=== PATIENT | female | born 1960 | race African-American/Black ===

== ENCOUNTER 2016-10-29 18:24 | Emergency (ER) | payer MEDICAID ==
[~2016-10-29] VITALS: Ht 170.2 cm; Wt 59.0 kg
[2016-10-29 19:16] LABS: Basophils # (auto) 0 uL; Basophils % (auto) 0.3 % (0.0-2.0); Eosinophils # (auto) 0 uL; Eosinophils % (auto) 0.4 % (0.0-7.0); Hematocrit 39.7 % (36.0-46.0); Hemoglobin 12.8 g/dL (12.2-16.2); Lymphocytes % (auto) 8.8 % (10.0-50.0); Mean Corpuscular Hemoglobin 27.8 pg (28.0-32.0); Mean Corpuscular Hgb Conc. 32.4 g/dL (32.0-36.0); Mean Corpuscular Volume 85.9 fL (80.0-100.0); Mean Platelet Volume 9.8 fL (7.4-10.4); Monocytes # (auto) 0.5 uL; Monocytes % (auto) 4.7 % (0.0-12.0); Neutrophils # (auto) 9.9 uL; Neutrophils % (auto) 85.8 % (37.0-80.0); Platelet Count (auto) 309 10^3/uL (140-450); Red Cell Distribution Width 14.8 % (11.6-16.0); SUSPECT VIEW TRANSMISSION; White Blood Cell 11.6 10^3/uL (4.4-10.8)
[2016-10-29 19:34] LABS: BUN/Creatinine Ratio 23.7; Calcium 8.9 mg/dL (8.5-10.1); Magnesium 2.4 mg/dL (1.6-2.6); Potassium 3.3 mmol/L (3.5-5.1)
[2016-10-29 19:38] LABS: Bilirubin, Total 0.8 mg/dL (0.2-1.0); Total Protein 7.6 g/dL (6.4-8.2)
[2016-10-29] MEDS ORDERED: ONDANSETRON HCL 4 MG/2 ML VIAL IV ONE (19:45)
[2016-10-29] MEDS ORDERED: HYDROmorphone HCL 2 MG/ML VL IV ONE (19:45)
[2016-10-29] MEDS ORDERED: LOPERAMIDE HCL 2 MG CAP PO ONE (19:45)
[2016-10-29] MEDS ORDERED: SODIUM CHLORIDE 0.9% 1,000 ML IV ONE (19:45)
[2016-10-29] MEDS ORDERED: POTASSIUM CHL 10% (20 MEQ/15ML) ORAL SOLN PO ONE (20:00)
[2016-10-29 21:47] VITALS: BP 104/70
[2016-10-29] MEDS ORDERED: cefTRIAXone 1GM/50ML D5W 50 ML IV ONE (22:30)
== END 2016-10-29 22:32 | disposition home or self-care (01) ==
LOC: ER 18:25
DX: J20.9 Acute bronchitis, unspecified (principal); E87.6 Hypokalemia; R53.1 Weakness; R42 Dizziness and giddiness; Z95.1 Presence of aortocoronary bypass graft; I10 Essential (primary) hypertension
CPT/HCPCS: 36415; 71010; 80053; 83735; 84484; 85025; 93005; 94761; 96361; 96365; 96375; 99285; J0696; J1170; J2405; J7030

== ENCOUNTER → 2017-03-18 | Outpatient (CLI) | payer MEDICAID ==
[~2017-03-18] VITALS: Ht 167.6 cm; Wt 53.1 kg
[~2017-03-18] MED LIST: ADENOSINE 45 MG in GIVE UN-DILUTED 0 ML IV ONE; ADENOSINE 90 MG/30 ML INJ IV ONE
== END | disposition home or self-care (01) ==
LOC: Rad HDHVI 10:19
PROVIDERS: ATTEND Internal Medicine Cardiovascular Disease
DX: I10 Essential (primary) hypertension (principal); R07.9 Chest pain, unspecified; E78.5 Hyperlipidemia, unspecified; Z82.49 Family history of ischemic heart disease and other diseases of the circulatory system; Z95.1 Presence of aortocoronary bypass graft
CPT/HCPCS: 78452; 93005; 96374; 96375; A9500; J0153

== ENCOUNTER → 2017-04-04 | Outpatient (CLI) | payer MEDICAID | END | disposition home or self-care (01) | LOC: Rad HDHVI 09:56 | PROVIDERS: ATTEND Internal Medicine Cardiovascular Disease | DX: I08.1 Rheumatic disorders of both mitral and tricuspid valves (principal); R42 Dizziness and giddiness | CPT/HCPCS: 93306 ==

== ENCOUNTER → 2017-06-13 | Outpatient (CLI) | payer MEDICAID ==
[2017-06-13 09:00] VITALS: BP 132/80
[2017-06-13 10:05] VITALS: BP 126/79
[2017-06-13 13:22] LABS: Basophils # (auto) 0 uL; Basophils % (auto) 0.4 % (0.0-2.0); Eosinophils # (auto) 0.2 uL; Eosinophils % (auto) 2.3 % (0.0-7.0); Hematocrit 34.5 % (36.0-46.0); Hemoglobin 10.9 g/dL (12.2-16.2); Lymphocytes # (auto) 2.7 uL; Lymphocytes % (auto) 33.2 % (10.0-50.0); Mean Corpuscular Hemoglobin 29.1 pg (28.0-32.0); Mean Corpuscular Hgb Conc. 31.6 g/dL (32.0-36.0); Mean Corpuscular Volume 92.1 fL (80.0-100.0); Mean Platelet Volume 8.2 fL (6.9-10.8); Monocytes # (auto) 0.6 uL; Monocytes % (auto) 7.4 % (0.0-12.0); Neutrophils # (auto) 4.7 uL; Neutrophils % (auto) 56.7 % (37.0-80.0); Nucleated Red Blood Cells % 0.1 %; Platelet Count (auto) 282 10^3/uL (140-450); Red Cell Distribution Width 14.4 % (11.8-14.3); White Blood Cell 8.3 10^3/uL (4.4-10.8)
[2017-06-13 13:38] LABS: INR 0.98 (0.9-1.15); Partial Thromboplastin Time 26.3 sec (22.64-33.71); Prothrombin Time 10.7 sec (9.37-12.3)
[2017-06-13 19:05] LABS: Potassium 3.9 mmol/L (3.5-5.1)
[2017-06-13 19:06] LABS: Calcium 8.7 mg/dL (8.5-10.1)
[2017-06-13 19:17] LABS: BUN/Creatinine Ratio 10.2
== END | disposition home or self-care (01) ==
LOC: Rad HDHVI 09:16
PROVIDERS: ATTEND Internal Medicine Cardiovascular Disease
DX: Z01.818 Encounter for other preprocedural examination (principal); I10 Essential (primary) hypertension; D64.9 Anemia, unspecified; R79.1 Abnormal coagulation profile; I70.0 Atherosclerosis of aorta
CPT/HCPCS: 36415; 71020; 80048; 85025; 85610; 85730; 93005; G0463

== ENCOUNTER → 2017-06-16 | Day surgery (SDC) | payer MEDICAID ==
[~2017-06-16] VITALS: Ht 167.6 cm; Wt 53.1 kg
[~2017-06-16] MED LIST changes: -ADENOSINE 45 MG in GIVE UN-DILUTED 0 ML IV ONE; -ADENOSINE 90 MG/30 ML INJ IV ONE; +ANGIOMAX 250 MG VIAL IV ONE; +ASPI81TA27 PO; +ATOR20TA50 PO; +CHOL200031 PO; +CLOP75TA41 PO; +DOCU100T15 PO; +ENAL2.5T PO; +FERR325T PO; +IOHEXOL 350 MG/ML 100ML IJ ONE; +LEFL20TA PO; +LIDOCAINE 2%HCL (LOCAL ANESTH.) INJ 20ML MDV ONE; +METO10TA3 PO; +MIDAZOLAM HCL 1MG/1ML-2 ML VIAL ONE; +ONDA4TAB5 PO; +ONDANSETRON HCL 4 MG/2 ML VIAL IV ONE; +PANT40TA2 PO; +POTA10TA51 PO; +PRE5T PO; +SODIUM CHL 0.9% 0 ML ONE; +SULI150T38 PO; +[UNRECOGNIZED DRUG - CODE] PO; +fentaNYL CITRATE 100 MCG/2 ML VL ONE
== END | disposition home or self-care (01) ==
LOC: CATH 08:34
PROVIDERS: ATTEND Internal Medicine Cardiovascular Disease
DX: I25.10 Atherosclerotic heart disease of native coronary artery without angina pectoris (principal); Z95.1 Presence of aortocoronary bypass graft; I10 Essential (primary) hypertension; E78.5 Hyperlipidemia, unspecified; I25.2 Old myocardial infarction; I50.9 Heart failure, unspecified; Z87.891 Personal history of nicotine dependence
CPT/HCPCS: C1887; C1894; J1644; J3010; J7030; Q9967; 93458; 99152; 99153; J2250

== ENCOUNTER 2017-08-01 09:31 | Emergency (ER) | payer MEDICAID ==
[~2017-08-01] VITALS: Ht 167.6 cm; Wt 58.1 kg
[~2017-08-01 09:31] MED LIST changes: -ANGIOMAX 250 MG VIAL IV ONE; -IOHEXOL 350 MG/ML 100ML IJ ONE; -LIDOCAINE 2%HCL (LOCAL ANESTH.) INJ 20ML MDV ONE; -MIDAZOLAM HCL 1MG/1ML-2 ML VIAL ONE; -ONDANSETRON HCL 4 MG/2 ML VIAL IV ONE; -SODIUM CHL 0.9% 0 ML ONE; -fentaNYL CITRATE 100 MCG/2 ML VL ONE
[2017-08-01 09:37] VITALS: BP 118/79
== END 2017-08-01 11:21 | disposition home or self-care (01) ==
LOC: ER 09:31
DX: L03.032 Cellulitis of left toe (principal); I11.0 Hypertensive heart disease with heart failure; I50.9 Heart failure, unspecified; E78.5 Hyperlipidemia, unspecified; M19.90 Unspecified osteoarthritis, unspecified site; Z79.82 Long term (current) use of aspirin; Z79.899 Other long term (current) drug therapy
CPT/HCPCS: 73660

== ENCOUNTER 2019-10-03 21:28 | Emergency (ER) | payer MEDICAID ==
[~2019-10-03] VITALS: Ht 170.2 cm; Wt 59.9 kg
[~2019-10-03 21:28] MED LIST changes: +ASPI-404 PO; -ASPI81TA27 PO; +FERR-20 PO; -FERR325T PO; +ONDA-144 PO; -ONDA4TAB5 PO
[2019-10-03 22:33] VITALS: BP 115/80
== END 2019-10-04 00:59 | disposition home or self-care (01) ==
LOC: ER 21:32
DX: B86 Scabies (principal); B07.9 Viral wart, unspecified; L02.31 Cutaneous abscess of buttock; M19.90 Unspecified osteoarthritis, unspecified site; I11.0 Hypertensive heart disease with heart failure; I50.9 Heart failure, unspecified; E78.5 Hyperlipidemia, unspecified; Z79.899 Other long term (current) drug therapy

== ENCOUNTER 2021-09-12 10:32 | Emergency (ER) | payer MEDICAID ==
[~2021-09-12] VITALS: Ht 167.6 cm; Wt 60.8 kg
[~2021-09-12 10:32] MED LIST changes: -ASPI-404 PO; +ASPI-543 PO; -CLOP75TA41 PO; +CLOP75TA70 PO; -ENAL2.5T PO; +ENAL2.5T7 PO
[2021-09-12 10:39] VITALS: BP 87/54
[2021-09-12 13:20] LABS: Basophils # (auto) 0 10 ^3/uL (0-0.2); Basophils % (auto) 0.9 % (0.0-2.0); Eosinophils # (auto) 0.1 10 ^3/uL (0-0.8); Eosinophils % (auto) 1.8 % (0.0-7.0); Hematocrit 34.9 % (36.0-46.0); Lymphocytes # (auto) 1.6 10 ^3/uL (0.4-5.4); Lymphocytes % (auto) 30.9 % (10.0-50.0); Mean Corpuscular Hgb Conc. 31.4 g/dL (32.0-36.0); Mean Corpuscular Volume 85.9 fL (80.0-100.0); Monocytes # (auto) 0.3 10 ^3/uL (0-1.3); Monocytes % (auto) 5.9 % (0.0-12.0); Neutrophils # (auto) 3.2 10 ^3/uL (1.6-8.6); Neutrophils % (auto) 60.5 % (37.0-80.0); Nucleated Red Blood Cells % 0.2 %; Red Blood Cells 4.06 10^6/uL (4.0-5.20); Red Cell Distribution Width 17.1 % (11.8-14.3); White Blood Cell 5.3 10^3/uL (4.4-10.8)
[2021-09-12 13:50] LABS: Albumin 3.4 g/dL (3.4-5.0); Calcium 8.9 mg/dL (8.5-10.1); Potassium 4.6 mmol/L (3.5-5.1)
[2021-09-12 13:53] LABS: BUN/Creatinine Ratio 8.6; Bilirubin, Total 0.8 mg/dL (0.2-1.0); Total Protein 6.4 g/dL (6.4-8.2)
== END 2021-09-12 17:49 | disposition left against medical advice (07) ==
LOC: ER 10:32
DX: D64.9 Anemia, unspecified (principal); M19.072 Primary osteoarthritis, left ankle and foot; M19.071 Primary osteoarthritis, right ankle and foot; I11.0 Hypertensive heart disease with heart failure; I50.9 Heart failure, unspecified; I25.2 Old myocardial infarction; E78.5 Hyperlipidemia, unspecified; Z95.1 Presence of aortocoronary bypass graft
CPT/HCPCS: 36415; 73620; 80053; 85025; 93005

== ENCOUNTER 2022-12-01 15:17 | Inpatient (IN) | payer MEDICAID ==
[~2022-12-01] VITALS: Ht 167.6 cm; Wt 56.0 kg
[2022-12-01] MEDS ORDERED: CEFTRIAXONE SODIUM 2 GM in D5W 5% 100 ML IV ONE (16:45)
[2022-12-01] MEDS ORDERED: VANCOMYCIN 1GM/250ML 250 ML IV ONE (16:45)
[2022-12-01 18:34] LABS: Basophils # (auto) 0.1 10 ^3/uL (0-0.2); Basophils % (auto) 0.7 % (0.0-2.0); Eosinophils # (auto) 0 10 ^3/uL (0-0.8); Eosinophils % (auto) 0.4 % (0.0-7.0); Hematocrit 36.3 % (36.0-46.0); Hemoglobin 11.9 g/dL (12.2-16.2); Lymphocytes # (auto) 1.1 10 ^3/uL (0.4-5.4); Mean Corpuscular Hemoglobin 26.5 pg (28.0-32.0); Mean Corpuscular Hgb Conc. 32.9 g/dL (32.0-36.0); Mean Corpuscular Volume 80.5 fL (80.0-100.0); Monocytes # (auto) 0.3 10 ^3/uL (0-1.3); Monocytes % (auto) 3.5 % (0.0-12.0); Neutrophils # (auto) 7.2 10 ^3/uL (1.6-8.6); Neutrophils % (auto) 82.4 % (37.0-80.0); Nucleated Red Blood Cells % 0.1 %; Red Cell Distribution Width 16.8 % (11.8-14.3); White Blood Cell 8.7 10^3/uL (4.4-10.8)
[2022-12-01 18:52] LABS: Albumin 3.4 g/dL (3.4-5.0); Calcium 9.5 mg/dL (8.5-10.1); Potassium 4.7 mmol/L (3.5-5.1)
[2022-12-01 18:56] LABS: BUN/Creatinine Ratio 22.2 (10.0-20.0); Bilirubin, Total 0.4 mg/dL (0.2-1.0); Total Protein 6.5 g/dL (6.4-8.2)
[2022-12-01 20:33] LABS: Urine Bacteria NONE SEEN /hpf (None Seen); Urine Blood Negative /uL (Negative); Urine Mucus FEW (None Seen); Urine Specific Gravity 1.032 (1.001-1.035); Urine WBC 1 /hpf (0 - 5)
[2022-12-01] MEDS ORDERED: TEMAZEPAM 15 MG CAP PO PRN (22:15)
[2022-12-01] MEDS ORDERED: CLINDAMYCIN 600MG IV 50 ML IV SCH (22:34)
[2022-12-02] MEDS: GABAPENTIN 400 MG CAP PO SCH ×3 (06:59→22:33)
[2022-12-02] MEDS ORDERED: CAR3125T PO (07:05)
[2022-12-02] MEDS ORDERED: HYDR1TAB97 PO (07:05)
[2022-12-02] MEDS ORDERED: DICL35CA2 PO (07:05)
[2022-12-02] MEDS ORDERED: GABA-339 PO (07:05)
[2022-12-02] MEDS: CLINDAMYCIN 300MG IV 50 ML IV SCH ×4 (07:14→17:57)
[2022-12-02] MEDS: CLOPIDOGREL BISULFATE 75 MG TAB PO SCH (08:49)
[2022-12-02] MEDS: PANTOPRAZOLE 40 MG TAB PO SCH (08:49)
[2022-12-02] MEDS: CARVEDILOL 3.125 MG TAB PO SCH ×2 (08:50→22:34)
[2022-12-02] MEDS: ENOXAPARIN SOD 40 MG/0.4 ML SYRINGE SC SCH (08:51)
[2022-12-02 09:00] VITALS: BP 165/96
[2022-12-02] MEDS: ONDANSETRON HCL 4 MG/2 ML VIAL IV PRN ×2 (09:00→14:05)
[2022-12-02 10:21] LABS: Potassium 3.4 mmol/L (3.5-5.1)
[2022-12-02 10:42] LABS: Basophils # (auto) 0.1 10 ^3/uL (0-0.2); Eosinophils # (auto) 0.2 10 ^3/uL (0-0.8); Mean Corpuscular Hemoglobin 26.2 pg (28.0-32.0); Mean Corpuscular Hgb Conc. 31.6 g/dL (32.0-36.0); Monocytes # (auto) 0.8 10 ^3/uL (0-1.3)
[2022-12-02 10:43] LABS: BUN/Creatinine Ratio 19.4 (10.0-20.0); Bilirubin, Total 0.3 mg/dL (0.2-1.0); Calcium 8.8 mg/dL (8.5-10.1)
[2022-12-02 10:44] LABS: Basophils % (auto) 0.7 % (0.0-2.0); Eosinophils % (auto) 2.1 % (0.0-7.0); Hematocrit 36.1 % (36.0-46.0); Hemoglobin 11.4 g/dL (12.2-16.2); Lymphocytes # (auto) 2.3 10 ^3/uL (0.4-5.4); Lymphocytes % (auto) 25.8 % (10.0-50.0); Mean Corpuscular Volume 82.7 fL (80.0-100.0); Monocytes % (auto) 8.6 % (0.0-12.0); Neutrophils # (auto) 5.5 10 ^3/uL (1.6-8.6); Neutrophils % (auto) 62.8 % (37.0-80.0); Nucleated Red Blood Cells % 0.2 %; Red Blood Cells 4.37 10^6/uL (4.0-5.20); Red Cell Distribution Width 16.9 % (11.8-14.3); White Blood Cell 8.8 10^3/uL (4.4-10.8)
[2022-12-02] MEDS: HYDROcodone-ACET 5/325MG TAB PO PRN ×2 (11:52→22:18)
[2022-12-02 13:00] VITALS: BP 143/90
[2022-12-02 16:47] VITALS: BP 153/75
[2022-12-02] MEDS: cefTRIAXone 1GM/50ML D5W 50 ML IV SCH (21:43)
[2022-12-02 22:00] VITALS: BP 135/85
[2022-12-02] MEDS ORDERED: ATORVASTATIN 20 MG TAB PO SCH (22:00)
[2022-12-02] MEDS: ATORVASTATIN 20 MG TAB PO SCH (22:33)
[2022-12-03] MEDS: CLINDAMYCIN 300MG IV 50 ML IV SCH ×7 (00:09→22:55)
[2022-12-03] MEDS: ONDANSETRON HCL 4 MG/2 ML VIAL IV PRN ×2 (00:15→09:16)
[2022-12-03] MEDS: HYDROcodone-ACET 5/325MG TAB PO PRN (03:47)
[2022-12-03 05:00] VITALS: BP 135/91
[2022-12-03] MEDS: GABAPENTIN 400 MG CAP PO SCH (06:19)
[2022-12-03 08:30] VITALS: BP 127/80
[2022-12-03] MEDS: PANTOPRAZOLE 40 MG TAB PO SCH (09:04)
[2022-12-03] MEDS: ENOXAPARIN SOD 40 MG/0.4 ML SYRINGE SC SCH (09:05)
[2022-12-03] MEDS: CARVEDILOL 3.125 MG TAB PO SCH ×2 (09:05→22:31)
[2022-12-03] MEDS: CLOPIDOGREL BISULFATE 75 MG TAB PO SCH (09:05)
[2022-12-03] MEDS: DAKINS QUARTER STR 0.125% (NaHypochlorite) 473 ML TOPICAL SOL TOP SCH (09:09)
[2022-12-03 12:00] VITALS: BP 125/75
[2022-12-03] MEDS: GABAPENTIN 300 MG CAP PO SCH ×2 (13:54→21:37)
[2022-12-03] MEDS: HYDROcodone-ACET 10/325MG TAB PO PRN ×2 (13:54→21:38)
[2022-12-03 16:30] VITALS: BP 141/86
[2022-12-03] MEDS: ATORVASTATIN 20 MG TAB PO SCH (21:37)
[2022-12-03] MEDS: cefTRIAXone 1GM/50ML D5W 50 ML IV SCH (21:37)
[2022-12-03 22:00] VITALS: BP 168/91
[2022-12-04] MEDS: CLINDAMYCIN 300MG IV 50 ML IV SCH ×7 (00:54→23:31)
[2022-12-04] MEDS: HYDROcodone-ACET 10/325MG TAB PO PRN ×4 (02:27→21:07)
[2022-12-04] MEDS: ACETAMINOPHEN 325 MG TAB PO PRN ×2 (03:28→16:07)
[2022-12-04 05:00] VITALS: BP 125/68
[2022-12-04] MEDS: GABAPENTIN 300 MG CAP PO SCH ×3 (06:19→22:50)
[2022-12-04 07:55] VITALS: BP 129/79
[2022-12-04] MEDS: CLOPIDOGREL BISULFATE 75 MG TAB PO SCH (08:36)
[2022-12-04] MEDS: PANTOPRAZOLE 40 MG TAB PO SCH (08:36)
[2022-12-04] MEDS: ENOXAPARIN SOD 40 MG/0.4 ML SYRINGE SC SCH (08:37)
[2022-12-04] MEDS: DAKINS QUARTER STR 0.125% (NaHypochlorite) 473 ML TOPICAL SOL TOP SCH (08:42)
[2022-12-04] MEDS: CARVEDILOL 3.125 MG TAB PO SCH ×2 (08:42→23:09)
[2022-12-04 11:55] VITALS: BP 154/89
[2022-12-04 16:50] VITALS: BP 145/88
[2022-12-04] MEDS: cefTRIAXone 1GM/50ML D5W 50 ML IV SCH (21:06)
[2022-12-04 22:00] VITALS: BP 142/100
[2022-12-04] MEDS: ATORVASTATIN 20 MG TAB PO SCH (22:50)
[2022-12-05] MEDS: HYDROcodone-ACET 10/325MG TAB PO PRN ×3 (04:33→23:29)
[2022-12-05 04:56] VITALS: BP 147/80
[2022-12-05] MEDS: GABAPENTIN 300 MG CAP PO SCH ×3 (07:05→22:21)
[2022-12-05] MEDS: CLINDAMYCIN 300MG IV 50 ML IV SCH ×5 (07:05→23:29)
[2022-12-05] MEDS: ACETAMINOPHEN 325 MG TAB PO PRN (08:00)
[2022-12-05 08:50] VITALS: BP 138/80
[2022-12-05] MEDS: CLOPIDOGREL BISULFATE 75 MG TAB PO SCH (10:27)
[2022-12-05] MEDS: CARVEDILOL 3.125 MG TAB PO SCH ×2 (10:27→22:22)
[2022-12-05] MEDS: ENOXAPARIN SOD 40 MG/0.4 ML SYRINGE SC SCH (10:27)
[2022-12-05] MEDS: PANTOPRAZOLE 40 MG TAB PO SCH (10:28)
[2022-12-05] MEDS: DAKINS QUARTER STR 0.125% (NaHypochlorite) 473 ML TOPICAL SOL TOP SCH (10:29)
[2022-12-05 12:45] VITALS: BP 104/79
[2022-12-05 16:45] VITALS: BP 111/80
[2022-12-05] MEDS: SODIUM CHLORIDE 0.9% 1,000 ML IV SCH ×2 (16:47→22:22)
[2022-12-05 17:15] LABS: Basophils # (auto) 0 10 ^3/uL (0-0.2); Eosinophils # (auto) 0.1 10 ^3/uL (0-0.8); Lymphocytes # (auto) 1.2 10 ^3/uL (0.4-5.4); Monocytes # (auto) 0.3 10 ^3/uL (0-1.3); Neutrophils # (auto) 3.8 10 ^3/uL (1.6-8.6); Neutrophils % (auto) 69.8 % (37.0-80.0)
[2022-12-05 17:17] LABS: Basophils % (auto) 0.7 % (0.0-2.0); Eosinophils % (auto) 2.3 % (0.0-7.0); Hematocrit 36.6 % (36.0-46.0); Hemoglobin 11.9 g/dL (12.2-16.2); Mean Corpuscular Hemoglobin 26.8 pg (28.0-32.0); Mean Corpuscular Hgb Conc. 32.5 g/dL (32.0-36.0); Mean Corpuscular Volume 82.4 fL (80.0-100.0); Monocytes % (auto) 5.2 % (0.0-12.0); Nucleated Red Blood Cells % 0.2 %; Red Blood Cells 4.44 10^6/uL (4.0-5.20); Red Cell Distribution Width 16.5 % (11.8-14.3); White Blood Cell 5.5 10^3/uL (4.4-10.8)
[2022-12-05 17:25] LABS: Calcium 8.4 mg/dL (8.5-10.1); Potassium 3.7 mmol/L (3.5-5.1)
[2022-12-05 17:27] LABS: BUN/Creatinine Ratio 10.8 (10.0-20.0)
[2022-12-05 22:00] VITALS: BP 127/79
[2022-12-05] MEDS: ATORVASTATIN 20 MG TAB PO SCH (22:21)
[2022-12-05] MEDS: cefTRIAXone 1GM/50ML D5W 50 ML IV SCH (22:21)
[2022-12-06] MEDS: CLINDAMYCIN 300MG IV 50 ML IV SCH ×6 (00:48→23:33)
[2022-12-06 04:59] VITALS: BP 136/90
[2022-12-06] MEDS: SODIUM CHLORIDE 0.9% 1,000 ML IV SCH ×3 (07:02→23:26)
[2022-12-06] MEDS: GABAPENTIN 300 MG CAP PO SCH ×3 (07:02→22:55)
[2022-12-06 09:00] VITALS: BP 137/92
[2022-12-06] MEDS: PANTOPRAZOLE 40 MG TAB PO SCH (09:08)
[2022-12-06] MEDS: ENOXAPARIN SOD 40 MG/0.4 ML SYRINGE SC SCH (09:08)
[2022-12-06] MEDS: CARVEDILOL 3.125 MG TAB PO SCH ×2 (09:09→22:55)
[2022-12-06] MEDS: HYDROcodone-ACET 10/325MG TAB PO PRN ×2 (09:09→19:13)
[2022-12-06] MEDS: DAKINS QUARTER STR 0.125% (NaHypochlorite) 473 ML TOPICAL SOL TOP SCH (09:09)
[2022-12-06] MEDS: CLOPIDOGREL BISULFATE 75 MG TAB PO SCH (09:09)
[2022-12-06 13:00] VITALS: BP 149/87
[2022-12-06 16:53] VITALS: BP 138/82
[2022-12-06] MEDS ORDERED: CLIN-203 PO (20:37)
[2022-12-06] MEDS: ERTAPENEM SOD INJ 1 GM in SODIUM CHL 0.9% 50 ML IV SCH (21:50)
[2022-12-06 22:00] VITALS: BP 143/81
[2022-12-06] MEDS: ATORVASTATIN 20 MG TAB PO SCH (22:55)
[2022-12-07] MEDS: CLINDAMYCIN 300MG IV 50 ML IV SCH ×6 (00:55→23:05)
[2022-12-07 05:00] VITALS: BP 139/80
[2022-12-07] MEDS: HYDROcodone-ACET 10/325MG TAB PO PRN ×4 (05:35→21:46)
[2022-12-07] MEDS: SODIUM CHLORIDE 0.9% 1,000 ML IV SCH ×3 (06:33→23:00)
[2022-12-07] MEDS: GABAPENTIN 300 MG CAP PO SCH ×3 (06:33→21:40)
[2022-12-07 09:00] VITALS: BP 146/83
[2022-12-07] MEDS: ENOXAPARIN SOD 40 MG/0.4 ML SYRINGE SC SCH (10:34)
[2022-12-07] MEDS: CARVEDILOL 3.125 MG TAB PO SCH ×2 (10:34→21:40)
[2022-12-07] MEDS: CLOPIDOGREL BISULFATE 75 MG TAB PO SCH (10:34)
[2022-12-07] MEDS: PANTOPRAZOLE 40 MG TAB PO SCH (10:34)
[2022-12-07] MEDS: DAKINS QUARTER STR 0.125% (NaHypochlorite) 473 ML TOPICAL SOL TOP SCH (10:36)
[2022-12-07 12:39] VITALS: BP 157/90
[2022-12-07 16:56] VITALS: BP 151/82
[2022-12-07] MEDS: ERTAPENEM SOD INJ 1 GM in SODIUM CHL 0.9% 50 ML IV SCH (19:42)
[2022-12-07] MEDS: ATORVASTATIN 20 MG TAB PO SCH (21:40)
[2022-12-07 22:00] VITALS: BP 130/79
[2022-12-08] MEDS: CLINDAMYCIN 300MG IV 50 ML IV SCH ×3 (00:06→08:25)
[2022-12-08 05:00] VITALS: BP 158/88
[2022-12-08] MEDS: GABAPENTIN 300 MG CAP PO SCH ×2 (06:00→14:02)
[2022-12-08] MEDS: SODIUM CHLORIDE 0.9% 1,000 ML IV SCH ×2 (06:00→15:00)
[2022-12-08] MEDS: HYDROcodone-ACET 10/325MG TAB PO PRN ×3 (06:26→19:51)
[2022-12-08 09:00] VITALS: BP 130/82
[2022-12-08] MEDS: PANTOPRAZOLE 40 MG TAB PO SCH (09:15)
[2022-12-08] MEDS: CARVEDILOL 3.125 MG TAB PO SCH (09:15)
[2022-12-08] MEDS: CLOPIDOGREL BISULFATE 75 MG TAB PO SCH (09:15)
[2022-12-08] MEDS: ENOXAPARIN SOD 40 MG/0.4 ML SYRINGE SC SCH (09:16)
[2022-12-08 12:38] VITALS: BP 147/94
[2022-12-08] MEDS ORDERED: CLINDAMYCIN HCL 150 MG CAP PO SCH (14:00)
[2022-12-08 15:15] VITALS: BP 147/94
[2022-12-08] MEDS: DAKINS QUARTER STR 0.125% (NaHypochlorite) 473 ML TOPICAL SOL TOP SCH (15:56)
[2022-12-08 16:15] VITALS: BP 124/90
[2022-12-08] MEDS: ERTAPENEM SOD INJ 1 GM in SODIUM CHL 0.9% 50 ML IV SCH (19:39)
== END 2022-12-08 21:00 | disposition home health service (06) | DRG 380 ==
LOC: ER 15:17 → OVERFLOW 22:21 → WEST WING 12-02 03:26
PROVIDERS: ADMIT Nurse Practitioner; ATTEND Hospitalist
DX: E11.621 Type 2 diabetes mellitus with foot ulcer (principal); L97.919 Non-pressure chronic ulcer of unspecified part of right lower leg with unspecified severity; E11.52 Type 2 diabetes mellitus with diabetic peripheral angiopathy with gangrene; I11.0 Hypertensive heart disease with heart failure; I50.9 Heart failure, unspecified; I96 Gangrene, not elsewhere classified; L02.619 Cutaneous abscess of unspecified foot; E11.628 Type 2 diabetes mellitus with other skin complications; E78.5 Hyperlipidemia, unspecified; M06.9 Rheumatoid arthritis, unspecified; L03.119 Cellulitis of unspecified part of limb; Z20.822 Contact with and (suspected) exposure to COVID-19; I25.10 Atherosclerotic heart disease of native coronary artery without angina pectoris; Z79.82 Long term (current) use of aspirin; Z79.899 Other long term (current) drug therapy; Z82.49 Family history of ischemic heart disease and other diseases of the circulatory system
CPT/HCPCS: 36415; 73630; 73718; 80048; 80053; 81001; 83036; 83605; 84484; 85025; 85652; 86141; 87040; 87045; 87077; 87186; 87205; 87426; 87427; 93926; 96365; 96366; 96367; G0378; J0696; J1335; J2405; J3490; J7060